=== PATIENT | female | born 1950 | race Caucasian/White ===

== ENCOUNTER 2019-08-13 08:18 | Outpatient (CLI) | payer OTHER, MEDICARE | END 2019-08-13 13:08 | disposition home or self-care (01) | LOC: SMA 08:18 | PROVIDERS: ATTEND Family Medicine | DX: Z12.31 Encounter for screening mammogram for malignant neoplasm of breast (principal) | CPT/HCPCS: 77067 ==

== ENCOUNTER 2020-08-23 09:07 | Outpatient (CLI) | payer OTHER, MEDICARE | END 2020-08-23 20:51 | disposition home or self-care (01) | LOC: SMA 09:07 | PROVIDERS: ATTEND Family Medicine | DX: N63.21 Unspecified lump in the left breast, upper outer quadrant (principal) | CPT/HCPCS: 76642; 77066 ==